=== PATIENT | female | born 1985 | race Caucasian/White ===

== ENCOUNTER 2017-07-21 12:19 | Emergency (ER) | payer MEDICAID ==
[2017-07-21] MEDS: SOD CHLORIDE 0.9% 1,000 ML IV (13:33)
[2017-07-21 13:51] LABS: ADD MAN DIFF? NO
[2017-07-21 13:56] LABS: BASOPHILS % 0.3 % (0.0-2.0); EOSINOPHILS # 0.1 10^3/ul (0.0-0.5); HEMATOCRIT 40.8 % (37.0-47.0); HEMOGLOBIN 13.9 g/dl (12.0-16.0); LYMPHOCYTES # 1.6 10^3/ul (0.8-2.9); LYMPHOCYTES % 23.1 % (15.0-51.0); MEAN CORPUSCULAR HGB CONC 34.1 g/dl (32.0-37.0); MEAN CORPUSCULAR VOLUME 88.1 fl (82.0-101.0); MONOCYTE # 0.4 10^3/ul (0.3-0.9); MONOCYTES % 5.7 % (0.0-11.0); NEUTROPHIL # 4.8 10^3/ul (1.6-7.5); NEUTROPHILS % 69.6 % (39.0-77.0); PLATELET COUNT 302 10^3/UL (140-415); RED BLOOD COUNT 4.63 10^6/ul (4.20-5.40); RED CELL DISTRIBUTION WIDTH 12.1 % (11.5-14.5)
[2017-07-21 14:17] LABS: ALANINE AMINOTRANSFERASE 32 IU/L (13-69); ALBUMIN 4.7 g/dl (3.3-4.9); ALBUMIN/GLOBULIN RATIO 1.27; ALKALINE PHOSPHATASE 83 IU/L (42-121); ANION GAP 17 (8-16); ASPARTATE AMINO TRANSFERASE 24 IU/L (15-46); BILIRUBIN,INDIRECT 0.1 mg/dl (0-1.1); BILIRUBIN,TOTAL 0.1 mg/dl (0.2-1.3); BLOOD UREA NITROGEN 12 mg/dl (7-20); CALCIUM 9.4 mg/dl (8.4-10.2); CARBON DIOXIDE 26 mmol/L (21-31); CHLORIDE 106 mmol/L (97-110); CREATININE 0.62 mg/dl (0.44-1.00); GLUCOSE 86 mg/dl (70-220); LIPASE 56 U/L (23-300); POTASSIUM 4.2 mmol/L (3.5-5.1); SODIUM 145 mmol/L (135-144); TOTAL PROTEIN 8.4 g/dl (6.1-8.1)
[2017-07-21 14:34] LABS: TROPONIN-I < 0.012 ng/ml (0.00-0.12)
[2017-07-21 14:40] LABS: CREATINE KINASE 169 IU/L (23-200)
[2017-07-21 15:52] LABS: ADD UMIC NO; UR ASCORBIC ACID 20 mg/dL (NEGATIVE); UR BILIRUBIN (Dip) NEGATIVE (NEGATIVE); UR BLOOD (Dip) NEGATIVE (NEGATIVE); UR CLARITY CLEAR (CLEAR); UR COLOR YELLOW (YELLOW); UR GLUCOSE (Dip) NEGATIVE (NEGATIVE); UR KETONES (Dip) NEGATIVE (NEGATIVE); UR LEUKOCYTE ESTERASE (Dip) NEGATIVE Leu/ul (NEGATIVE); UR NITRITE (Dip) NEGATIVE (NEGATIVE); UR SPECIFIC GRAVITY (Dip) 1.016 (1.003-1.030); UR TOTAL PROTEIN (Dip) NEGATIVE (NEGATIVE); UR UROBILINOGEN (Dip) NEGATIVE (NEGATIVE)
== END 2017-07-21 16:40 | disposition home or self-care (01) ==
LOC: FTE 12:19
DX: R42 Dizziness and giddiness (principal); R53.1 Weakness
CPT/HCPCS: 36415; 71045; 80053; 81003; 81025; 82550; 83690; 84484; 85025; 93005; 99285-25

== ENCOUNTER 2018-04-16 02:21 | Emergency (ER) | payer MEDICAID ==
[2018-04-16] MEDS: IPRATROPIUM (NEB) 0.5 MG/2.5 ML AMP HHN (04:04)
[2018-04-16] MEDS: ALBUTEROL 0.083% (NEB) 2.5 MG/3 ML AMP HHN (04:05)
[2018-04-16] MEDS: AZITHROMYCIN 500MG/NS (PMX) 250 ML IVPB (04:14)
[2018-04-16] MEDS: IBUPROFEN 800 MG TAB PO (04:15)
[2018-04-16] MEDS: METHYLPREDNISOLONE 125 MG INJ IV (04:15)
[2018-04-16] MEDS: SOD CHLORIDE 0.9% 1,000 ML IV (04:16)
[2018-04-16] MEDS: ONDANSETRON 4 MG INJ IV (05:39)
== END 2018-04-16 06:23 | disposition home or self-care (01) ==
LOC: FTE 02:21
DX: J40 Bronchitis, not specified as acute or chronic (principal); J32.9 Chronic sinusitis, unspecified
CPT/HCPCS: 94664; 96365; 96366; 96375; 99284-25